=== PATIENT | female | born 1955 | race Caucasian/White ===

== ENCOUNTER 2023-06-27 08:49 | Outpatient (AMB) | payer MEDICARE, OTHER, SELFPAY ==
[2023-06-27 08:53] VITALS: BP 130/86; BMI 31.9
--- NOTE | 2023-06-27 08:53 | MHC.PC.OV ---
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: No Accompanied by: Self / Same As Patient Allergies No Known Allergies Allergy (Verified 06/27/23 09:06) Medication List - Last Reconciled 06/27/23 by Janell Anna MD omeprazole 20 mg PO BID pravastatin 20 mg PO DAILY Tobacco use date assessed: 06/27/23 Fall risk assessment: No Falls in past year Last assessed Fall Risk: 06/27/23 Dental Screening Dental Screen Date: 06/27/23 Did you have a dental visit in the last 12 months?: Yes Did you have a dental problem in the last 6 months where you did not have access to dental care?: No Was dental information given to patient?: Patient has dentist HPI HPI Comments History of Present Illness Details This is a 68-year-old female with chronic GERD and pure hypercholesterolemia that comes to establish care. GERD has been stable with PPIs as needed. On statins for elevated cholesterol. Last mammogram was July 2022 in [place]. Last colonoscopy was 2016 in [place] and was normal. Last bone density was over 2 years ago. Denies any chest pain or shortness of breath. Donated left kidney to her sister and used to see a plywood matcher back in [place]. [facility] Surgical History (Updated 06/27/23 @ 09:12 by Janell Anna MD) History of tonsillectomy History of nephrectomy, left History of hysterectomy Family History Mother Alzheimer disease Emphysema lung Heart disease Father Renal cancer Substance use disorder Maternal Grandmother Stroke Family/Other Mental health disorder Social History Housing: House Alcohol intake: current Alcohol intake frequency: a few times a month Alcohol type: wine Patient Tobacco Use Status: Never used Tobacco e-Cigarette/Vaping Use: Never Used Second Hand Smoke Exposure: Yes service: No Current occupational status: employed and retired Cognitive needs: No Hearing needs: No Vision needs: Yes Questionnaire PHQ-9 Over the last 2 weeks, how often have you been bothered by any of the following problems? 1. Little interest or pleasure in doing things: not at all 2. Feeling down, depressed, or hopeless: not at all 3. Trouble falling or staying asleep, or sleeping too much: not at all 4. Feeling tired or having little energy: not at all 5. Poor appetite or overeating: not at all 6. Feeling bad about yourself - or that you are a failure or have let yourself or your family down: not at all 7. Trouble concentrating on things, such as reading the newspaper or watching television: not at all 8. Moving or speaking so slowly that other people could have noticed. Or the opposite - being so fidgety or restless that you have been moving around a lot more than usual: not at all 9. Thoughts that you would be better off or of hurting yourself in some way: not at all Total score: 0 Depression Screening Interpretation: Negative Depression Screening Done: Yes [id number] - PHQ-9 Billing: Yes Source: Developed by Drs. Олег Shukla, Ellen Garcia, Carlos Ching and colleagues, with an educational eboni from [employer]. Thrive Questionnaire Date Thrive assessed: 06/27/23 I am a: Patient What is your living situation today?: I have a steady place to live Within the past 12 months, did the food you bought not last and you didn't have the money to get more?: Never true Within the past 12 months, did you worry whether your food would run out before you got money to buy more?: Never true Do you have trouble paying for medicines?: No Do you have trouble getting transportation to medical appointments?: No Do you have trouble paying your heating and electricity bill?: No Do you have trouble taking care of your child, family member or friend?: No Do you have trouble with day-to-day activities such as bathing, preparing meals, shopping, managing finances, etc.?: No Are you currently unemployed and looking for a job?: No Are you interested in more education?: No Please select the resources that you would like help with: None Currently or been in a relationship where the following occur: no concerns reported THRIVE Score: 0 AUDIT C Alcohol Use Questionnaire (AUDIT-C) 1. How often do you have a drink containing alcohol?: 2-4 times a month 2. How many drinks containing alcohol do you have on a typical day when you are drinking?: 1 or 2 3. How often do you have six or more drinks on one occasion?: Never Total Score: 2 LUANN-7 AMB Questionnaire LUANN-7 Date LUANN - 7 assessed: 06/27/23 Feeling nervous, anxious, or on edge: 0 = Not at all Not being able to stop or control worryin = Not at all Worrying too much about different things: 0 = Not at all Trouble relaxin = Not at all Being so restless that it is hard to sit still: 0 = Not at all Becoming easily annoyed or irritable: 0 = Not at all Feeling afraid as if something awful might happen: 0 = Not at all Total LUANN-7 score (0-4 normal; 5-9 mild; 10-14 moderate; 15-21 severe): 0 Source: Developed by Drs. Олег Shukla, Ellen Garcia, Carlos Ching and colleagues, with an educational eboni from [employer]. LUANN-7 Assessment Billing LUANN-7 Assessment Tool: LUANN-7 Assessment 01143 Review of Systems Const All systems reviewed & are unremarkable except as noted in HPI and below Eyes Reports no additional complaints, Denies change in vision and Denies other visual disturbances Card Denies chest pain at rest, Denies chest pain with activity, Denies edema, Denies irregular heart rhythm, Denies claudication, Denies dyspnea, Denies dyspnea on exertion, Denies orthopnea, Denies paroxysmal nocturnal dyspnea and Denies slow heart rate Resp Denies cough, Denies dyspnea and Denies dyspnea on exertion GI Denies abdominal pain, Denies change in bowel habits, Denies excessive flatus, Denies nausea and Denies vomiting Denies urinary incontinence, Denies urinary hesitancy and Denies urinary urgency Musc Denies abnormal gait, Denies atrophy, Denies deformity and Denies limited range of motion Skin/Breast Denies bleeding lesions, Denies changing lesions and Denies rash Neuro Denies abnormal gait, Denies behavioral changes and Denies lack of coordination Psych Denies behavioral changes Physical exam (Primary Care) Vital Signs: Last Vital Signs BP 130/86 06/27/23 08:53 BMI result Body Mass Index 31.9 Tobacco/Smoking Status: Tobacco use Status Tobacco use date assessed 06/27/23 06/27/23 09:04 Patient Tobacco Use Status Never used Tobacco 06/27/23 09:04 e-Cigarette/Vaping Use Never Used 06/27/23 09:04 PHQ-9: PHQ-9 Score PHQ-9: Total score 0 06/27/23 09:04 Depression Screening Interpretation: Negative Thrive Assessment: Date of Thrive Assessment Date Thrive assessed 06/27/23 06/27/23 09:04 Currently or been in a relationship where the following occur: no concerns reported Eyes General: appearance normal, both eyes and all related structures Eyelids: Yes eyelids normal Conjunctivae: conjunctivae normal Neck Neck: Yes normal visual inspection and Yes supple Resp Effort & Inspection: normal respiratory effort Auscultation: clear to auscultation bilaterally Cardio Jugular venous distension: no JVD Rate: regular rate Rhythm: regular rhythm Heart sounds: S1 normal heart sound present and S2 normal heart sound present Extrem General: Yes full ROM Assessment and Plan Assessment & Plan (1) Pure hypercholesterolemia: Code(s): E78.00 - Pure hypercholesterolemia, unspecified Plan: Continue statins. Repeat lipid panel. (2) Chronic GERD: Code(s): K21.9 - Gastro-esophageal reflux disease without esophagitis Plan: Continue PPIs as needed. Orders: Orders XR DEXA axial skeleton Today N95.9 - Unspecified menopausal and perimenopausal disorder MM screening mammo BI Today Z12.31 - Encounter for screening mammogram for malignant neoplasm of breast Lipid Panel Today E78.5 - Hyperlipidemia, unspecified Comprehensive [place]. Panel Fast Today E78.00 - Pure hypercholesterolemia, unspecified Referrals Nephrology Referral Z52.4 - Kidney donor, Z90.5 - Acquired absence of kidney Medications: New pravastatin 20 mg PO DAILY 90 days 90 tabs 1RF omeprazole 20 mg PO DAILY pravastatin 20 mg PO DAILY 90 days 90 tabs 1RF Coding Level of Care Code New Pt Level 3 (49830) Diagnoses Pure hypercholesterolemia E78.00 Chronic GERD K21.9 Additional Codes LUANN-7 Assessment Billing - LUANN-7 Assessment Tool: LUANN-7 Assessment 74687 ([id number]) Time Spent (min) 19
== END 2023-06-27 09:18 | disposition home or self-care (01) ==
PROVIDERS: PCP Internal Medicine; Visit Provider Internal Medicine
DX: E78.00 Pure hypercholesterolemia, unspecified (principal); K21.9 Gastro-esophageal reflux disease without esophagitis
CPT/HCPCS: 99203

== ENCOUNTER 2023-07-05 11:53 | Outpatient (AMB) | payer MEDICARE, OTHER, SELFPAY ==
[2023-07-05 11:55] VITALS: BP 130/82; PULSE 83; O2SAT 99; BMI 32.7
--- NOTE | 2023-07-05 11:55 | HO.NEPHOV ---
HPI HPI Comments History of Present Illness Details 68-year-old femal e with chronic SAMUEL D and dyslipidemia who had donated h er kidney to her s ister comes in for establishment in follow-up of renal care locally. GE RD has been stable with PPIs as need ed. Sheis on stat ins for elevated c holesterol. Last mammogram was Sanya h 2022 in [facility]. Last colo noscopy was 2017 i n [place] a nd was normal. La st bone density wa s over 2 years ago . She denies any chest pain, shortn ess of breath, par oxysmal nocturnal dyspnea, orthopnea , pedal edema, yessenia ght gain, renal ca lculus, hematuria, edema, urinary or orthostatic sympt oms. She has been seeing a nephrolo gist back in [place]. [facility] Surgical History History of tonsillectomy History of nephrectomy, left History of hysterectomy Family History Mother Alzheimer disease Emphysema lung Heart disease Father Renal cancer Substance use disorder Maternal Grandmother Stroke Family/Other Mental health disorder Social History Housing: House Alcohol intake: current Alcohol intake frequency: a few times a month Alcohol type: wine Patient Tobacco Use Status: Never used Tobacco e-Cigarette/Vaping Use: Never Used Second Hand Smoke Exposure: Yes service: No Current occupational status: employed and retired Cognitive needs: No Hearing needs: No Vision needs: Yes Vital Signs 07/05/23 11:55 Height 5 ft 1 in Weight 173 lb BMI 32.7 BP 130/82 Blood Pressure Location Rt brachial Position Sitting Pulse 83 Pulse Source Pulse Oximeter Pulse Oximetry (%) 99 Oxygen Delivery Method Room Air Physical Exam Vital Signs: Last Vital Signs Pulse 83 07/05/23 11:55 BP 130/82 07/05/23 11:55 Pulse Ox 99 07/05/23 11:55 Oxygen Delivery Method Room Air 07/05/23 11:55 BMI result Body Mass Index 32.7 Const General: comfortable and no acute distress Orientation/consciousness: patient oriented x3 HEENT Head: Yes normocephalic Mouth: Normal oral and palatal mucosa present Eyes EOM: EOMs intact bilaterally Neck Neck: Yes supple Resp Auscultation: clear to auscultation bilaterally Cardio Jugular venous distension: no JVD Rate: regular rate GI Palpation (GI): Soft to palpation Auscultation: normal bowel sounds General: Yes no CVA tenderness Back/Spine/Pelvis Back: no CVA tenderness Skin General skin exam: no rashes or lesions noted Neuro General: patient oriented x3 and moves all extremities Extrem General: Yes no pedal edema Assessment & Plan Assessment & Plan (1) Absent kidney, acquired: Code(s): Z90.5 - Acquired absence of kidney Plan Senait has given one of her kidneys to her sister. Her renal functions have been stable. Her blood pressure has been at goal. She needs to lose weight. She has not known to have any proteinuria. She is at risk for hyper filtration. I have ordered workup. With time she may be a candidate for low-dose DUNCAN inhibitor, if indicated. She needs to continue lifestyle modifications. I had not make any medication changes today. She should avoid nonsteroidal anti-inflammatories and maintain good hydration. I answered all her questions. Follow-up appointment given. Orders: Orders Blood Urea Nitrogen 07/05/23 Z90.5 - Acquired absence of kidney Calcium 07/05/23 Z90.5 - Acquired absence of kidney Vitamin D 25-OH Total 07/05/23 Z90.5 - Acquired absence of kidney Phosphorus 07/05/23 Z90.5 - Acquired absence of kidney Creatinine 07/05/23 Z90.5 - Acquired absence of kidney Electrolytes 07/05/23 Z90.5 - Acquired absence of kidney Protein Creatinine Ratio, Ur 07/05/23 Z90.5 - Acquired absence of kidney Parathyroid Hormone Intact 07/05/23 Z90.5 - Acquired absence of kidney Coding Level of Care Code New Pt Level 4 (28947) Diagnoses Absent kidney, acquired Z90.5 Results Reviewed Nephrology Results: No Data to Display
== END 2023-07-05 13:00 | disposition home or self-care (01) ==
PROVIDERS: PCP Internal Medicine; Visit Provider Internal Medicine Nephrology
DX: Z90.5 Acquired absence of kidney (principal)
CPT/HCPCS: 99204

== ENCOUNTER → 2023-07-05 11:53 | Outpatient (BNVA) | payer MEDICARE, OTHER, SELFPAY | PROVIDERS: PCP Internal Medicine; Visit Provider Internal Medicine Nephrology | DX: Z90.5 Acquired absence of kidney (principal) | CPT/HCPCS: 99202 ==

== ENCOUNTER 2023-08-09 09:34 | Outpatient (REF) | payer MEDICARE, OTHER, SELFPAY ==
--- NOTE | ~2023-08-09 | MM_ITS ---
EXAMINATION: MM SCREENING DIGITAL BREAST TOMOSYNTHESIS, BILATERAL CLINICAL INFORMATION: Screening. Asymptomatic. COMPARISON: Mammography: This study is compared with prior exams dating back to 2022. TECHNIQUE: Digital breast tomosynthesis is performed in both the craniocaudal and mediolateral oblique views along with computer-aided detection (CAD). Synthesized 2D images are generated from the tomosynthesis. FINDINGS: There are scattered areas of fibroglandular density (ACR BI-RADS breast composition Category b). There are no significant masses, abnormal calcifications, or other abnormalities. MM/MM tomosynthesis screening BI IMPRESSION: No mammographic evidence of malignancy. ASSESSMENT: BI-RADS BI-RADS 1 - Negative RECOMMENDATION: Routine annual mammography screening. 1 year F/U This examination should not preclude the clinical evaluation of a suspicious palpable abnormality. This patient's information was entered into a reminder system with a target due date for their next mammogram.
== END 2023-08-09 09:35 | disposition home or self-care (01) ==
LOC: HO.MAMMO 09:34
PROVIDERS: PCP Internal Medicine; Visit Provider Internal Medicine
DX: Z12.31 Encounter for screening mammogram for malignant neoplasm of breast (principal)
CPT/HCPCS: 77063; 77067

== ENCOUNTER → 2023-08-09 09:45 | Outpatient (BNV) | payer MEDICARE, OTHER, SELFPAY | PROVIDERS: PCP Internal Medicine; Visit Provider Radiology Diagnostic Radiology | DX: Z12.31 Encounter for screening mammogram for malignant neoplasm of breast (principal) | CPT/HCPCS: 77063; 77067 ==

== ENCOUNTER 2023-11-01 06:19 | Outpatient (REF) | payer MEDICARE, OTHER, SELFPAY ==
[2023-11-01 08:34] LABS: Alanine Aminotransferase 29 U/L (0-31); Albumin Level 4.2 g/dL (3.5-5.0); Alkaline Phosphatase 84 U/L (39-117); Anion Gap 12 (12-20); Aspartate Amino Transferase 36 U/L (5-31); Bilirubin Total 0.4 mg/dL (0.0-1.0); Blood Urea Nitrogen 23 mg/dL (9-16); Carbon Dioxide 28 mmol/L (22-29); Chloride 106 mmol/L (96-108); Cholesterol 219 mg/dL (<200); Estimated Glomerular Filt Rate 49; Glucose Fasting 89 mg/dL (60-99); HDL Cholesterol 50 mg/dL (>40); LDL Cholesterol Calculated 138 mg/dL (<100); Potassium 4.5 mmol/L (3.3-5.1); Sodium 141 mmol/L (135-145); Total Protein 6.8 g/dL (6.5-8.0); Triglycerides 156 mg/dL (<150)
== END 2023-11-01 06:20 | disposition home or self-care (01) ==
LOC: HO.LAB 06:19
PROVIDERS: Absent Provider Internal Medicine Nephrology; PCP Internal Medicine; Visit Provider Internal Medicine
DX: E78.00 Pure hypercholesterolemia, unspecified (principal); E78.5 Hyperlipidemia, unspecified
CPT/HCPCS: 36415; 80053; 80061

== ENCOUNTER 2023-11-07 15:39 | Outpatient (AMB) | payer MEDICARE, OTHER, SELFPAY ==
--- NOTE | 2023-11-07 15:43 | MHC.PC.OV ---
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 GERD stable with famotidine. Cholesterol still elevated with pravastatin but her [place] risk score is less than 6% therefore I will not change the medication. She has obese with a BMI of 32.5 and was advised to diet and exercise to reach BMI goal less than 30. [facility] Surgical History History of tonsillectomy History of nephrectomy, left History of hysterectomy Family History Mother Alzheimer disease Emphysema lung Heart disease Father Renal cancer Substance use disorder Maternal Grandmother Stroke Family/Other Mental health disorder Social History Housing: House Alcohol intake: current Alcohol intake frequency: a few times a month Alcohol type: wine Patient Tobacco Use Status: Never used Tobacco e-Cigarette/Vaping Use: Never Used Second Hand Smoke Exposure: Yes service: No Current occupational status: employed and retired Cognitive needs: No Hearing needs: No Vision needs: Yes Questionnaire Thrive Questionnaire Date Thrive assessed: 06/27/23 LUANN-7 AMB Questionnaire LUANN-7 Date LUANN - 7 assessed: 06/27/23 Source: Developed by Drs. Олег Shukla, Ellen Garcia, Carlos Ching and colleagues, with an educational eboni from [employer]. Review of Systems Const All systems reviewed & are unremarkable except as noted in HPI and below Card Denies chest pain at rest, Denies chest pain with activity, Denies edema, Denies irregular heart rhythm, Denies claudication, Denies dyspnea, Denies dyspnea on exertion, Denies orthopnea, Denies paroxysmal nocturnal dyspnea and Denies slow heart rate Resp Denies cough, Denies dyspnea and Denies dyspnea on exertion GI Denies abdominal pain, Denies change in bowel habits, Denies excessive flatus, Denies nausea and Denies vomiting Denies urinary incontinence, Denies urinary hesitancy and Denies urinary urgency Physical exam (Primary Care) Vital Signs: Last Vital Signs BP 126/82 11/07/23 15:44 BMI result Body Mass Index 32.5 BMI Assessment/Plan discussion: High BMI High, discussed plan: lifestyle, weight reduction, dietary and physical activity Tobacco/Smoking Status: Tobacco use Status Tobacco use date assessed 06/27/23 11/07/23 15:48 Patient Tobacco Use Status Never used Tobacco 11/07/23 15:48 e-Cigarette/Vaping Use Never Used 11/07/23 15:48 Thrive Assessment: Date of Thrive Assessment Date Thrive assessed 06/27/23 11/07/23 15:48 Resp Effort & Inspection: normal respiratory effort Auscultation: clear to auscultation bilaterally Cardio Jugular venous distension: no JVD Rate: regular rate Rhythm: regular rhythm Heart sounds: S1 normal heart sound present and S2 normal heart sound present Extrem General: Yes full ROM Assessment and Plan Assessment & Plan (1) Chronic GERD: Code(s): K21.9 - Gastro-esophageal reflux disease without esophagitis Plan: Continue famotidine. (2) Pure hypercholesterolemia: Code(s): E78.00 - Pure hypercholesterolemia, unspecified Plan: Continue pravastatin. Repeat lipid panel in 6 months. Start low-cholesterol diet. (3) Class 1 obesity with body mass index (BMI) of 32.0 to 32.9 in adult: Code(s): E66.9 - Obesity, unspecified; Z68.32 - Body mass index [BMI] 32.0-32.9, adult Qualifiers: Obesity type: due to excess calories Serious obesity comorbidity presence: without serious comorbidity Qualified Code(s): E66.09 - Other obesity due to excess calories; Z68.32 - Body mass index [BMI] 32.0-32.9, adult Plan: Start diet and exercise. BMI goal is less than 30. Orders: Orders Lipid Panel 6 Months E78.00 - Pure hypercholesterolemia, unspecified, E78.5 - Hyperlipidemia, unspecified Comprehensive [place]. Panel Fast 6 Months E78.00 - Pure hypercholesterolemia, unspecified Coding Level of Care Code Est Pt Level 3 (36096) Complex EM visit Add On G2211 Diagnoses Chronic GERD K21.9 Pure hypercholesterolemia E78.00 Class 1 obesity due to excess calories without serious comorbidity with body mass index (BMI) of 32.0 to 32.9 in adult E66.09; Z68.32 Obesity type: due to excess calories Serious obesity comorbidity presence: without serious comorbidity Time Spent (min) 18
[2023-11-07 15:44] VITALS: BP 126/82; BMI 32.5
== END 2023-11-07 16:16 | disposition home or self-care (01) ==
PROVIDERS: PCP Internal Medicine; Visit Provider Internal Medicine
DX: K21.9 Gastro-esophageal reflux disease without esophagitis (principal); E78.00 Pure hypercholesterolemia, unspecified; E66.09 Other obesity due to excess calories; Z68.32 Body mass index [BMI] 32.0-32.9, adult
CPT/HCPCS: 99213; G2211

== ENCOUNTER 2024-01-03 14:59 | Outpatient (AMB) | payer MEDICARE, OTHER, SELFPAY ==
--- NOTE | 2024-01-03 15:01 | HO.NEPHOV_ITS ---
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 She had donated her kidney to her sister. She does not have any hypertension, proteinuria. Her renal functions have been stable with the last serum creatinine 1.11. She has no froth or foam in the urine. She is trying to lose some weight. She denies taking excessive nonsteroidal anti-inflammatories. She maintains good hydration. She denies any UTIs, hematuria, renal stones, flank pain, chest pain, shortness of breath, paroxysmal nocturnal dyspnea, orthopnea, pedal edema or orthostatic symptoms. She had gotten a shingles shot and has some erythema around it on her right upper extremity. Otherwise there were no new complaints at the time of this office visit [facility] Surgical History History of tonsillectomy History of nephrectomy, left History of hysterectomy Family History Mother Alzheimer disease Emphysema lung Heart disease Father Renal cancer Substance use disorder Maternal Grandmother Stroke Family/Other Mental health disorder Social History Housing: House Alcohol intake: current Alcohol intake frequency: a few times a month Alcohol type: wine Patient Tobacco Use Status: Never used Tobacco e-Cigarette/Vaping Use: Never Used Second Hand Smoke Exposure: Yes service: No Current occupational status: employed and retired Cognitive needs: No Hearing needs: No Vision needs: Yes Physical Exam Vital Signs: Last Vital Signs Pulse 88 01/03/24 15:03 BP 122/76 01/03/24 15:03 Pulse Ox 96 01/03/24 15:03 Oxygen Delivery Method Room Air 01/03/24 15:03 BMI result Body Mass Index 32.9 Const General: comfortable and no acute distress Orientation/consciousness: patient oriented x3 HEENT Head: Yes normocephalic Mouth: Normal oral and palatal mucosa present Eyes EOM: EOMs intact bilaterally Neck Neck: Yes supple Resp Auscultation: clear to auscultation bilaterally Cardio Jugular venous distension: no JVD Rate: regular rate GI Palpation (GI): Soft to palpation Auscultation: normal bowel sounds General: Yes no CVA tenderness Back/Spine/Pelvis Back: no CVA tenderness Skin General skin exam: no rashes or lesions noted Neuro General: patient oriented x3 and moves all extremities Extrem General: Yes no pedal edema Results Reviewed Nephrology Results: Sodium 141 mmol/L (135-145) 11/01/23 Potassium 4.5 mmol/L (3.3-5.1) 11/01/23 Chloride 106 mmol/L (96-108) 11/01/23 Carbon Dioxide 28 mmol/L (22-29) 11/01/23 BUN 23 mg/dL (9-16) H 11/01/23 Creatinine 1.11 mg/dL (0.5-1.4) 11/01/23 Calcium 10.0 mg/dL (8.4-10.2) 11/01/23 Assessment & Plan Assessment & Plan (1) Absent kidney, acquired: Code(s): Z90.5 - Acquired absence of kidney Category: Medical Plan Senait has given one of her kidneys to her sister. Her renal functions have been stable. Her blood pressure has been at goal. She needs to lose weight. She is not known to have any proteinuria. She is at risk for hyper filtration. With time she may be a candidate for low-dose DUNCAN inhibitor, if indicated. She needs to continue lifestyle modifications. I did not make any medication changes today. She should avoid nonsteroidal anti-inflammatories and maintain good hydration. I answered all her questions. Follow-up appointment given. Orders: Orders Creatinine Today Z90.5 - Acquired absence of kidney Electrolytes Today Z90.5 - Acquired absence of kidney Protein Creatinine Ratio, Ur Today Z90.5 - Acquired absence of kidney Blood Urea Nitrogen Today Z90.5 - Acquired absence of kidney Coding Level of Care Code Est Pt Level 4 (73006) Diagnoses Absent kidney, acquired Z90.5
[2024-01-03 15:03] VITALS: BP 122/76; PULSE 88; O2SAT 96; BMI 32.9
== END 2024-01-03 15:28 | disposition home or self-care (01) ==
PROVIDERS: PCP Internal Medicine; Visit Provider Internal Medicine Nephrology
DX: Z90.5 Acquired absence of kidney (principal)
CPT/HCPCS: 99214

== ENCOUNTER → 2024-01-03 14:59 | Outpatient (BNVA) | payer MEDICARE, OTHER, SELFPAY | PROVIDERS: PCP Internal Medicine; Visit Provider Internal Medicine Nephrology | DX: Z90.5 Acquired absence of kidney (principal) | CPT/HCPCS: 99212 ==

== ENCOUNTER 2024-04-23 08:05 | Outpatient (REF) | payer MEDICARE, OTHER, SELFPAY ==
--- NOTE | ~2024-04-23 | MM_ITS ---
EXAMINATION: BONE DENSITOMETRY CLINICAL INDICATION: Menopause. COMPARISON: This is the patient's baseline examination. TECHNIQUE: Using a [employer] DXA System (software version: 13.1) manufactured by [employer], dual-energy x-ray absorptiometry was performed of the lumbar spine and left hip. The images are of good technical quality. Summary results are attached. FINDINGS: LEFT FEMUR, NECK: BMD 0.729 g/cm2, Z-score -0.9, T-score -2.2, osteopenia. LEFT FEMUR, TOTAL: BMD 0.761 g/cm2, Z-score -0.9, T-score -2.0, osteopenia. AP SPINE L1-L4: BMD 0.976 g/cm2, Z-score -0.5, T-score -1.7, osteopenia. IDENTIFIED RISK FACTORS: Early menopause, hysterectomy, right oophorectomy, secondary osteoporosis. HISTORY OF FRACTURE: None listed. MEDICATIONS: None listed. MM/XR DEXA axial skeleton IMPRESSION: 1. DIAGNOSIS: Osteopenia based on the lowest T-score value of -2.2 in the femoral neck applying World Health Organization criteria. 2. 10-YEAR FRACTURE RISK PREDICTION, FRAX: Major osteoporotic fracture (clinical spine, forearm, hip or shoulder) 12.2%. Hip fracture 2.4%. 3. Treatment Recommendations: NOF guidelines recommend consideration for treatment in postmenopausal women and men age 50 and older presenting with the following: -A hip or vertebral (clinical or morphometric) fracture. -T-score less than or equal to -2.5 at the femoral neck or spine after appropriate evaluation to exclude secondary causes. -Low bone mass at the hip or spine and a 10-year fracture probability by FRAX of greater than or equal to 3% for hip fracture or greater than or equal to 20% for major osteoporotic fracture based on the [place] adapted WHO algorithm. 4. Other Recommendations: All treatment decisions require clinical judgment and consideration of individual patient factors, including patient preferences, comorbidities, previous drug use, risk factors not captured in the FRAX model (e.g. frailty, falls, vitamin D deficiency, increased bone turnover, interval significant decline in bone density) and possible under or overestimation of fracture risk by FRAX. Additional medical evaluation for secondary cause of low bone mineral density may be appropriate. FUTURE SCAN RECOMMENDATION: People with diagnosed cases of osteoporosis or at high risk for fracture should have regular bone mineral density tests. For patients eligible for Medicare, routine testing is allowed once every 2 years. The testing frequency can be increased to one year for patients who have rapidly progressing disease, those who are receiving or discontinuing medical therapy to restore bone mass, or have additional risk factors. Electronically signed by: Claudia Hendrickson MD 04/24/2024 02:34 PM ALISA JUAREZ
== END 2024-04-23 08:06 | disposition home or self-care (01) ==
LOC: HO.MAMMO 08:05
PROVIDERS: PCP Internal Medicine; Visit Provider Internal Medicine
DX: Z13.820 Encounter for screening for osteoporosis (principal); Z78.0 Asymptomatic menopausal state
CPT/HCPCS: 77080

== ENCOUNTER 2024-05-13 15:51 | Outpatient (AMB) | payer MEDICARE, OTHER, SELFPAY ==
[2024-05-13 15:54] VITALS: BP 130/82; BMI 33.1
--- NOTE | 2024-05-13 15:54 | MHC.PC.OV ---
Vital Signs 05/13/24 15:54 Height 5 ft 1 in Weight 175 lb BMI 33.1 BP 130/82 Blood Pressure Location Lt brachial Position Sitting Intake Visit Reasons: 6mof\u Intake Note: Patient here for a 6 month follow up Planning Division Superintendent Required: No Accompanied by: Self / Same As Patient Allergies No Known Allergies Allergy (Verified 05/13/24 16:32) Medication List - Last Reconciled 05/13/24 by Janell Anna MD famotidine (Pepcid) 20 mg PO DAILY pravastatin 20 mg PO DAILY 90 days Tobacco use date assessed: 06/27/23 Fall risk assessment: No Falls in past year Last assessed Fall Risk: 05/13/24 Dental Screening Dental Screen Date: 05/13/24 Did you have a dental visit in the last 12 months?: No Did you have a dental problem in the last 6 months where you did not have access to dental care?: No Was dental information given to patient?: Patient has dentist HPI HPI Comments History of Present Illness Details The patient is a 69-year-old female presenting with shortness of breath on exertion and dizziness. The shortness of breath has been present intermittently and tends to worsen with physical activities such as climbing stairs or carrying groceries. The patient reports a long history of this symptom, even when previously evaluated at another health center but cannot recall any specific diagnoses or further investigations. Weight management challenges have been discussed, with a BMI indicating Class 1 obesity, which may contribute to the symptomatology. The patient also experiences dizziness, which occurs spontaneously, sometimes necessitating support such as holding onto taylor while walking. There is no report of dizziness being positional, and there was no mention of associated ear symptoms such as tinnitus. This dizziness has been a long-standing issue with no clear inciting factors or prior interventions. Her GERD has been stable with famotidine. Cholesterol well controlled with statins and reports no side effects. She is obese with a BMI of 33.1 and was advised to diet and exercise as tolerated to reach BMI goal less than 30. [facility] Surgical History History of tonsillectomy History of nephrectomy, left History of hysterectomy Family History Mother Alzheimer disease Emphysema lung Heart disease Father Renal cancer Substance use disorder Maternal Grandmother Stroke Family/Other Mental health disorder Social History Housing: House Alcohol intake: current Alcohol intake frequency: a few times a month Alcohol type: wine Patient Tobacco Use Status: Never used Tobacco e-Cigarette/Vaping Use: Never Used Second Hand Smoke Exposure: Yes service: No Current occupational status: employed and retired Cognitive needs: No Hearing needs: No Vision needs: Yes Questionnaire Thrive Questionnaire Date Thrive assessed: 06/27/23 AUDIT C Alcohol Use Questionnaire (AUDIT-C) 2. How many drinks containing alcohol do you have on a typical day when you are drinking?: 1 or 2 3. How often do you have six or more drinks on one occasion?: Never Total Score: 0 LUANN-7 AMB Questionnaire LUANN-7 Date LUANN - 7 assessed: 06/27/23 Source: Developed by Drs. Олег Shukla, Ellen Garcia, Carlos Ching and colleagues, with an educational eboni from [employer]. Review of Systems Const Details: - General: Reports no chest pain. - Cardiovascular: Denies shortness of breath at rest. - Neurological: Reports dizziness. Denies ringing in the ears. Physical exam (Primary Care) Vital Signs: Last Vital Signs BP 130/82 05/13/24 15:54 BMI result Body Mass Index 33.1 BMI Assessment/Plan discussion: High BMI High, discussed plan: lifestyle, weight reduction, dietary and physical activity Tobacco/Smoking Status: Tobacco use Status Tobacco use date assessed 06/27/23 05/13/24 16:01 Patient Tobacco Use Status Never used Tobacco 05/13/24 16:01 e-Cigarette/Vaping Use Never Used 05/13/24 16:01 Thrive Assessment: Date of Thrive Assessment Date Thrive assessed 06/27/23 05/13/24 16:01 Const Other: General: No confusion Respiratory: Shortness of breath on activity, clear to auscultation bilaterally Cardiovascular: No jugular venous distension, regular rate, regular rhythm, S1 normal heart sound present and S2 normal heart sound present Neurology: Patient oriented x3, no focal motor deficits and No confusion, reports dizziness Coding Level of Care Code Est Pt Level 4 (67356) Complex EM visit Add On G2211 Diagnoses Dyspnea on exertion R06.09 Chronic GERD K21.9 Pure hypercholesterolemia E78.00 Dizziness R42 Time Spent (min) 23 Assessment & Plan Assessment & Plan (1) Dyspnea on exertion: Code(s): R06.09 - Other forms of dyspnea Category: Medical (2) Chronic GERD: Code(s): K21.9 - Gastro-esophageal reflux disease without esophagitis Category: Medical (3) Pure hypercholesterolemia: Code(s): E78.00 - Pure hypercholesterolemia, unspecified Category: Medical (4) Dizziness: Code(s): R42 - Dizziness and giddiness Category: Medical Plan - Provide referral to pulmonology for further evaluation of shortness of breath on exertion. - Prescribe medications for dizziness with caution for possible sedative effects, ensuring non-impact on renal function. - Monitor hypercholesterolemia with repeat lipid panel testing in six months. - Lifestyle modification counseling, including dietary changes and weight management support. - Advise follow-up care if symptoms worsen or fail to improve with interventions. Patient was informed and verbally consented to the use of an ambient scribe for clinic note documentation during this visit. During the visit, we discussed the patient's current symptoms of shortness of breath on exertion and dizziness. I recommended a referral to a aerial crop duster for a comprehensive evaluation of the respiratory symptoms, as well as the possible benefits of losing weight in alleviating shortness of breath. For the dizziness, I suggested a medication option that may help reduce the symptoms with caution regarding drowsiness as a side effect. We have also planned for repeat cholesterol monitoring in six months due to prior elevated levels and discussed ongoing lifestyle modifications for managing weight and supporting cardiovascular health. I highlighted the importance of returning if symptoms escalate or persist despite the implemented plans. Consent was given for the proposed management plan and referrals. Orders: Orders Comprehensive [place]. Panel Fast 6 Months R06.09 - Other forms of dyspnea Complete Blood Count Auto Diff 6 Months R06.09 - Other forms of dyspnea Lipid Panel 6 Months E78.5 - Hyperlipidemia, unspecified Referrals Pulmonology Referral R06.09 - Other forms of dyspnea Medications: New meclizine 25 mg PO BID PRN 6 tabs 0RF dizziness 3 days Patient Instructions: - Follow up with the scheduled pulmonology referral for additional assessment. - Take the prescribed medication for dizziness only as directed and be aware of potential drowsiness as a side effect. - Plan for a repeat cholesterol test in six months. - Focus on weight management strategies including balanced diet and increased physical activity. - Monitor symptoms of dizziness and shortness of breath. Contact my office if symptoms worsen or new symptoms develop.
== END 2024-05-13 16:45 | disposition home or self-care (01) ==
PROVIDERS: PCP Internal Medicine; Visit Provider Internal Medicine
DX: R06.09 Other forms of dyspnea (principal); K21.9 Gastro-esophageal reflux disease without esophagitis; E78.00 Pure hypercholesterolemia, unspecified; R42 Dizziness and giddiness

== ENCOUNTER → 2024-05-13 15:51 | Outpatient (BNVA) | payer MEDICARE, OTHER, SELFPAY | PROVIDERS: PCP Internal Medicine; Visit Provider Internal Medicine | DX: R42 Dizziness and giddiness (principal); E66.811 Obesity, class 1; K21.9 Gastro-esophageal reflux disease without esophagitis; R06.09 Other forms of dyspnea; E78.00 Pure hypercholesterolemia, unspecified; Z68.33 Body mass index [BMI] 33.0-33.9, adult; Z79.899 Other long term (current) drug therapy | CPT/HCPCS: 99212 ==

== ENCOUNTER 2024-08-16 16:11 | Outpatient (REF) | payer MEDICARE, OTHER, SELFPAY | END 2024-08-16 16:12 | disposition home or self-care (01) | LOC: HO.MAMMO 16:11 | PROVIDERS: PCP Internal Medicine; Visit Provider Internal Medicine | DX: Z12.31 Encounter for screening mammogram for malignant neoplasm of breast (principal) | CPT/HCPCS: 77063; 77067 ==

== ENCOUNTER → 2024-08-16 16:15 | Outpatient (BNV) | payer MEDICARE, OTHER, SELFPAY | PROVIDERS: PCP Internal Medicine; Visit Provider Internal Medicine | DX: Z12.31 Encounter for screening mammogram for malignant neoplasm of breast (principal) | CPT/HCPCS: 77063; 77067 ==

== ENCOUNTER 2024-10-21 15:31 | Outpatient (AMB) | payer MEDICARE, OTHER, SELFPAY ==
[2024-10-21 15:36] VITALS: BP 120/86; PULSE 79; O2SAT 98; BMI 33.1
--- NOTE | 2024-10-21 15:36 | MHC.OFFVIS ---
Vital Signs 10/21/24 15:36 Height 5 ft 1 in Weight 175 lb 4.28 oz BMI 33.1 BP 120/86 Blood Pressure Location Rt brachial Position Sitting Pulse 79 Pulse Source Pulse Oximeter Pulse Oximetry (%) 98 Oxygen Delivery Method Room Air Intake Visit Reasons: Dyspnea Allergies No Known Allergies Allergy (Verified 10/21/24 15:40) HPI HPI Dyspnea: Details: Senait is a pleasant 69 year old female, never smoker, with underlying GERD. She was referred by PCP for pulmonary evaluation for ongoing dyspnea. She reports dyspnea occurs upon exertion and has been present for many years, occasionally with associated chest heaviness. Denies cough, wheezing or chest tightness. Symptoms currently thought to be attributed to weight however patient states she had symptoms when she was more active and weighed less. She denies prior h/o asthma. She denies recurrent respiratory infections. She endorses significant second hand smoke exposure. She denies seasonal allergies. She denies occupational exposures. She reports prior h/o cardiac concerns in 1999 during extensive workup prior to donating kidney which was suggestive of prior [place], however energy conservation representative did not confirm finding. She denies any chest pain at this time, endorses dizziness. She reports mother with asthma, two sisters, smokers, one with lung cancer and the other with recurrent pleural effusions. [facility] Surgical History History of tonsillectomy History of nephrectomy, left History of hysterectomy Family History Mother Alzheimer disease Emphysema lung Heart disease Father Renal cancer Substance use disorder Maternal Grandmother Stroke Family/Other Mental health disorder Social History Housing: House Alcohol intake: current Alcohol intake frequency: a few times a month Alcohol type: wine Patient Tobacco Use Status: Never used Tobacco e-Cigarette/Vaping Use: Never Used Second Hand Smoke Exposure: Yes service: No Current occupational status: employed and retired Cognitive needs: No Hearing needs: No Vision needs: Yes Review of Systems Const Denies chills, Denies excessive sweating, Denies fever(s), Denies headache(s) and Denies night sweats Eyes Denies dry eyes, Denies irritation and Denies itchy eyes ENT Reports Normal hearing present, Denies headache(s), Denies nasal congestion, Denies nasal discharge, Denies post nasal drip and Denies sore throat Card Denies chest pain, Denies chest pain at rest, Denies chest pain with activity, Denies claudication, Denies leg edema, Denies orthopnea and Denies paroxysmal nocturnal dyspnea Resp Denies chest congestion, Denies cough, Denies excessive phlegm production, Denies pain on inspiration, Denies pain with cough, Denies stridor and Denies wheezing Musc Denies myalgias Neuro Reports Normal hearing present and Denies headache(s) Endo Denies excessive sweating Grant/Lymph Denies lymphadenopathy Aller/Immun Denies itchy eyes, Denies seasonal rhinorrhea and Denies wheezing Physical Exam Vital Signs: Last Vital Signs Pulse 79 10/21/24 15:36 BP 120/86 10/21/24 15:36 Pulse Ox 98 10/21/24 15:36 Oxygen Delivery Method Room Air 10/21/24 15:36 BMI result Body Mass Index 33.1 Const General: cooperative, healthy appearing, comfortable, no acute distress, well developed and alert Nutritional Appearance: obese Orientation/consciousness: patient oriented x3 Limitations: no limitations HEENT Head: Yes normal to inspection, Yes normocephalic and Yes atraumatic Ears: hearing grossly normal bilaterally and external ears normal Eyes General: appearance normal, both eyes and all related structures Eyelids: Yes eyelids normal Sclerae: sclerae normal EOM: EOMs intact bilaterally Neck Neck: Yes normal visual inspection and Yes no lymphadenopathy Lymphatic: no lymphadenopathy noted Chest Chest palpation & inspection: normal inspection of the chest Resp Effort & Inspection: normal respiratory effort, able to speak in complete sentences, no audible wheezes, no cough, no stridor, not tachypneic, no tripod positioning and no use of accessory muscles Auscultation: clear to auscultation bilaterally Cardio Jugular venous distension: no JVD Rate: regular rate Rhythm: regular rhythm Skin Other: warm, dry General skin exam: no rashes or lesions noted Neuro General: patient oriented x3 Cranial nerves: Yes Normal hearing present Cognition (Neuro): normal cognition Gait exam (Neuro): Normal gait present Extrem General: Yes normal to inspection, Yes capillary refill normal, Yes no clubbing, cyanosis or edema and Yes no pedal edema Psych Appearance: grossly normal and well kempt Speech and movement: Normal speech and movement present and Clear speech present Affect: normal affect Attitude: cooperative Thought process: Normal thought process present Thought content: Normal thought content present Insight: Good insight present (Psych) Judgement: Good judgement present (Psych) Assessment & Plan Assessment & Plan (1) Dyspnea: Code(s): R06.00 - Dyspnea, unspecified Category: Medical Plan Seanit presents for pulmonary evaluation for ongoing dyspnea, unclear etiology. Will send for PFT to assess for obstructive defect. Will send for CXR to assess for any underlying parenchymal condition. All questions were answered and patient is in agreement of plan. Will follow up to review results or sooner if needed. Orders: Orders PFT pulmonary function test Today R06.00 - Dyspnea, unspecified XR chest 2V Today R06.00 - Dyspnea, unspecified Coding Level of Care Code New Pt Level 3 (17732) Diagnoses Dyspnea R06.00
--- OUTSIDE RECORDS SUMMARY | 2024-10-21 16:43 | XMS_ITS | Clinical Summary ---
Author Organization [facility] Facility Address [address] [place] [id number] Care Team Providers Care Baccarat Manager Name Role Phone Ann Rapp MD Primary Care Provider Allergies Active Allergy Reactions Criticality Noted Date Comments Aspirin Other (see comments) 10/15/2020 Ibuprofen Other (see comments) 10/15/2020 Naproxen Other (see comments) 10/15/2020 Medications atorvastatin (LIPITOR) 10 MG tablet Take 10 mg by mouth daily Active cholecalciferol (VITAMIN D-3) 25 MCG (1000 UT) capsule Take 1 capsule by mouth 1 (one) time Active furosemide (LASIX) 20 MG tablet Take 1 tablet by mouth 1 (one) time each day Active omeprazole OTC (PriLOSEC OTC) 20 MG EC tablet Take 1 tablet by mouth 1 (one) time each day Active pravastatin (PRAVACHOL) 20 MG tablet Take 1 tablet by mouth 1 (one) time Active calcitriol (ROCALTROL) 0.25 MCG capsule TAKE 1 CAPSULE EVERY OTHER DAY 45 capsule 3 02/13/2022 Active Active Problems Problem Noted Date Diagnosed Date Stage 3a chronic kidney disease 10/15/2020 Hyperparathyroidism due to renal insufficiency 0 10/15/2020 Vitamin D deficiency 10/15/2020 Acquired absence of kidney 08/21/2017 Overview (10/15/2020): L s/p donation to sister Elevated blood pressure read ing with no diagnosis of hypertension Family History Medical History Relation Comments Cancer Father kidney Kidney disease Father Dementia Mother Heart disease Mother [place] Gout Sibling 1 sister Diabetes Sibling 2 sisters Relation Status Comments Father Mother Sibling 1 Sibling 2 Social History Tobacco Use Types Packs/Day Years Used Date Smoking Tobacco: Never Smokeless Tobacco: Never Alcohol Use Standard Drinks/Week Comments Yes 0 (1 standard drink = 0.6 oz pure alcohol) Alcoholic Drinks/day: Occasional social drink Comments Unknown Sex and Gender Information Value Date Recorded Sex Assigned at Female 10/13/2021 8:19 PM EDT Legal Sex Female 5:10 PM EST Gender Identity Not on file Sexual Orientation Not on file Last Filed Vital Signs Vital Sign Reading Time Taken Comments Blood Pressure 126/75 10/21/2021 2:44 PM EDT Pulse 69 10/21/2021 2:44 PM EDT Temperature - - Respiratory Rate - - Oxygen Saturation - - Inhaled Oxygen Concentration - - Weight 77 kg (169 lb 11.2 oz) 10/21/2021 2:44 PM EDT Height 157.5 cm (5' 2 ) 03/27/2020 12:00 PM EST Body Mass Index 31.04 03/27/2020 12:00 PM EST Plan of Treatment Health Maintenance Due Date Last Done Comments Breast Cancer Screening 1955 Pneumococcal Vaccine: 50+ Ye ars (1 of 2 - PCV) 12/31/1974 Colorectal Cancer Screening: Annual FOBT 12/31/2004 Colorectal Cancer Screening: Colonoscopy 12/31/2004 Colorectal Cancer Screening: Sigmoidoscopy 12/31/2004 Influenza Vaccine (Season Ended) 2025 Hepatitis B Vaccine Aged Out No longe r eligible based on patient's age to complete this topic Insurance Medicare [facility] Medicare Care Teams Baccarat Manager Relationship Specialty Start Date End Date Ann Rapp MD [address] [place] [id number] PCP - General Family Medicine 04/05/21
== END 2024-10-21 16:13 | disposition home or self-care (01) ==
PROVIDERS: PCP Internal Medicine; Referring Provider Internal Medicine; Visit Provider Nurse Practitioner Family
DX: R06.00 Dyspnea, unspecified (principal)
CPT/HCPCS: 99203

== ENCOUNTER → 2024-10-21 15:31 | Outpatient (BNVA) | payer MEDICARE, OTHER, SELFPAY | PROVIDERS: PCP Internal Medicine; Referring Provider Internal Medicine; Visit Provider Nurse Practitioner Family | DX: R06.00 Dyspnea, unspecified (principal); K21.9 Gastro-esophageal reflux disease without esophagitis | CPT/HCPCS: 99202 ==

== ENCOUNTER 2024-11-15 11:24 | Outpatient (REF) | payer MEDICARE, OTHER, SELFPAY ==
--- NOTE | ~2024-11-15 | XR_ITS ---
EXAMINATION: XR CHEST CLINICAL INFORMATION: R06.00 - Dyspnea, unspecified COMPARISON: None available. TECHNIQUE: 2 views of the chest were obtained. FINDINGS: No consolidation, pleural effusion or pneumothorax. No hyperinflation. Cardiomediastinal silhouette size is normal. Multilevel thoracolumbar spondylosis with a kyphotic deformity of the thoracolumbar junction. Osteopenia versus osteoporosis. Patient's large body habitus/obesity. XR/XR chest 2V IMPRESSION: No acute airspace disease. Multilevel spondylosis. Electronically signed by: Reyes Adams MD 11/15/2024 12:23 PM EDT
--- OUTSIDE RECORDS SUMMARY | 2024-11-15 12:38 | XMS_ITS | Clinical Summary ---
Author Organization [facility] Facility Address [address] [place] [id number] Care Team Providers Care Obstetrics Tech Name Role Phone Ann Rapp MD Primary Care Provider [phone] Allergies Active Allergy Reactions Criticality Noted Date [...] disease Father Dementia Mother Heart disease Mother [place] Gout Sibling 1 sister Diabetes Sibling 2 [...] to complete this topic Insurance Medicare [facility] Medicare Care Teams Obstetrics Tech Relationship Specialty Start Date End Date Ann Rapp MD [address] [place] [id number] PCP - General Family Medicine 04/05/21
== END 2024-11-15 11:25 | disposition home or self-care (01) ==
LOC: HO.HMGCX 11:24
PROVIDERS: PCP Internal Medicine; Visit Provider Nurse Practitioner Family
DX: R06.00 Dyspnea, unspecified (principal)
CPT/HCPCS: 71046

== ENCOUNTER → 2024-11-15 11:27 | Outpatient (BNV) | payer MEDICARE, OTHER, SELFPAY | PROVIDERS: PCP Internal Medicine; Visit Provider Radiology Diagnostic Radiology | DX: M47.895 Other spondylosis, thoracolumbar region (principal) | CPT/HCPCS: 71046 ==

== ENCOUNTER 2024-11-16 07:19 | Outpatient (REF) | payer MEDICARE, OTHER, SELFPAY ==
[2024-11-16 11:04] LABS: MANUAL DIFF FLAG NO
[2024-11-16 11:15] LABS: Basophils Absolute Auto 0.1 X10*3/uL (0.0-0.2); Basophils Percent Auto 0.9 % (0-2); Eosinophils Absolute Auto 0.1 X10*3/uL (0.0-0.4); Eosinophils Percent Auto 2.1 % (0-4); Hematocrit 41.3 % (37.0-47.0); Hemoglobin 13.2 g/dl (12.0-16.0); Imm Gran Abs Auto 0.01 X10*3/uL (0.00-0.03); Imm Gran Pct Auto 0.2 % (0.0-0.4); Lymphocytes Absolute Auto 2.5 X10*3/uL (1.2-4.9); Lymphocytes Percent Auto 43.9 % (20-40); Mean Corpuscular Hemoglobin 27.2 pg (27.0-33.0); Mean Corpuscular Volume 85.2 fL (80.0-98.0); Mean Platelet Volume 11.2 fL (9.4-12.3); Monocytes Absolute Auto 0.5 X10*3/uL (0.1-1.2); Monocytes Percent Auto 8.5 % (2-11); Neutrophils Absolute Auto 2.6 x10*3/uL (2.0-8.3); Neutrophils Percent Auto 44.4 % (45-73); Platelet Count 264 X10*3/uL (160-400); Red Blood Count 4.85 X10*6/uL (4.20-5.50); Red Cell Distribution Width 13.2 % (11.0-16.0); White Blood Count 5.8 X10*3/uL (4.8-10.8)
[2024-11-16 11:30] LABS: Alanine Aminotransferase 18 U/L (0-31); Albumin Level 4.3 g/dL (3.5-5.0); Alkaline Phosphatase 68 U/L (39-117); Anion Gap 9 (12-20); Aspartate Amino Transferase 28 U/L (5-31); Bilirubin Total 0.4 mg/dL (0.0-1.0); Blood Urea Nitrogen 15 mg/dL (9-16); Calcium 9.4 mg/dL (8.4-10.2); Carbon Dioxide 27 mmol/L (22-29); Chloride 109 mmol/L (96-108); Cholesterol 170 mg/dL (<200); Estimated Glomerular Filt Rate 52; Glucose Fasting 88 mg/dL (60-99); HDL Cholesterol 45 mg/dL (>40); LDL Cholesterol Calculated 96 mg/dL (<100); Sodium 141 mmol/L (135-145); Total Protein 6.5 g/dL (6.5-8.0); Triglycerides 147 mg/dL (<150)
== END 2024-11-16 07:20 | disposition home or self-care (01) ==
LOC: HO.HMGCLDS 07:19
PROVIDERS: PCP Internal Medicine; Visit Provider Internal Medicine
DX: R06.09 Other forms of dyspnea (principal); E78.5 Hyperlipidemia, unspecified
CPT/HCPCS: 36415; 80053; 80061; 85025

== ENCOUNTER 2024-11-19 07:26 | Outpatient (AMB) | payer MEDICARE, OTHER, SELFPAY ==
--- OUTSIDE RECORDS SUMMARY | 2024-11-19 07:29 | XMS_ITS | Clinical Summary ---
Author Organization [facility] Facility Address [address] [place] [address] Care Team Providers Care Insurance Defense Attorney Name Role Phone Ann Rapp MD Primary Care Provider [phone] Allergies Active Allergy Reactions Criticality Noted Date [...] disease Father Dementia Mother Heart disease Mother [place] Gout Sibling 1 sister Diabetes Sibling 2 [...] age to complete this topic Insurance Medicare [facility] Medicare Care Teams Insurance Defense Attorney Relationship Specialty Start Date End Date Ann Rapp MD [address] [place] [phone] PCP - General Family Medicine 04/05/21
--- NOTE | 2024-11-19 07:35 | AM.OFFVISMDC ---
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 [place] of care reviewed and updated. The patient is a 69-year-old female presenting for a Medicare annual wellness exam. She received the pneumonia vaccine at 68 years old and the tetanus vaccine in 2020, with the next tetanus vaccine due in 2030. Her recent mammogram was negative, and a bone density scan in April 2024 showed osteopenia with a T score of -2.2 at the femoral neck. Recent laboratory tests indicated good kidney function with a GFR of 52, improved cholesterol levels from 219 to 170, and normal blood sugar and liver enzymes. Her medical history includes a tonsillectomy, left nephrectomy for kidney donation, and hysterectomy. Family history reveals her mother had Alzheimer's, emphysema, and heart disease, while her father had renal cancer and a history of alcohol use disorder. She does not smoke, drinks wine a few times a month, and denies depression. REPLACED BY [facility] Surgical History History of tonsillectomy History of nephrectomy, left History of hysterectomy Family History Mother Alzheimer disease Emphysema lung Heart disease Father Renal cancer Substance use disorder Maternal Grandmother Stroke Family/Other Mental health disorder Social History Housing: House Alcohol intake: current Alcohol intake frequency: a few times a month Alcohol type: wine Patient Tobacco Use Status: Never used Tobacco e-Cigarette/Vaping Use: Never Used Second Hand Smoke Exposure: Yes service: No Current occupational status: employed and retired Cognitive needs: No Hearing needs: No Vision needs: Yes Questionnaire Medicare Wellness Checkup What [age]?: 65-70 What gender do you identify with?: female During the past 4 weeks, how much have you been bothered by emotional problems such as feeling anxious, depressed, irritable, sad or downhearted, and blue?: not at all During the past 4 weeks, has your physical & emotional health limited your social activities with family, friends, neighbors, or groups?: not at all During the past 4 weeks, how much bodily pain have you generally had?: no pain During the past 4 weeks, was someone available to help you if you needed & wanted help?: yes, as much as I wanted During the past 4 weeks, what was the hardest physical activity you could do for at least 2 minutes?: moderate Can you get to places out of walking distance without help? (For eg., can you travel alone on buses, taxis or drive your car?): Yes Can you go shopping for groceries or clothes without someone's help?: Yes Can you prepare your own meals?: Yes Can you do your housework without help?: Yes Because of any health problems, do you need the help of another person with your personal care needs such as eating, bathing, dressing or getting around the house?: No Can you handle your own money without help?: Yes During the past 4 weeks, how would you rate your health in general?: very good During the past 4 weeks how have things been going for you?: pretty well Are you having difficulties driving your car?: no Do you always fasten your seat belt when you are in a car?: yes, usually During past 4 weeks, have you been bothered by the following: never: Sexual problems?, Trouble eating well?, Teeth or denture problems? and Problems using the telephone?, seldom: Tiredness or fatigue? and sometimes: Falling or dizzy when standing up Have you fallen 2 or more times in the past year?: No Are you afraid of falling?: No Are you a smoker?: no During the past 4 weeks, how many drinks of wine, beer, or other alcoholic beverages did you have?: 1 drink or less per week Do you exercise for about 20 minutes 3 or more times a week?: no, I usually do not exercise this much Have you been given information to help with the following?: no: Hazards in your house that might hurt you? and no: Keeping track of your medications? How often do you have trouble taking medicines the way you have been told to take them?: I always take medicine as prescribed How confident are you that you can control & manage most of your health problems?: very confident What is your race?: White Mini Mental State Exam (MMSE) Orientation What is the (year) (season) (date) (day) (month)?: year, season, date, day and month Where are we (state) (county) (town or city) (hospital) (floor)?: state, county, town or city, hospital/clinic and floor Registration Name of 3 unrelated objects clearly and slowly, then ask patient to repeat all 3 of them. (1st repeat determines score. Make sure they can repeat all three): object 1, object 2 and object 3 Attention & Calculation (CHOOSE ONE) Spell WORLD backwards (DLROW): 5 letters Recall Ask patient to repeat the 3 items from question #3.: object 1, object 2 and object 3 Language Show patient a wristwatch & ask what it is. Repeat for pencil.: watch and pencil Ask the patient to repeat the phrase 'No ifs, ands, or buts' after you.: correct Ask the patient to 'take a piece of paper with their right hand' 'fold paper in half' 'place paper on floor': take paper in right hand, fold paper in half and place paper on floor Print the sentence 'CLOSE YOUR EYES' on a piece. If patient actually closes eyes then score.: followed written direction Give patient a blank piece of paper & ask to write a sentence. Score if it contains a noun & verb.: sentence contains subject and verb Ask patient to copy figure of intersecting pentagons exactly. Score if all 10 angles & 2 intersects are included.: all 10 angles present & 2 are intersected Score Score: 30 Activity of Daily Living Bathing - sponge bath, tub bath or shower: receives no assistance (gets in/out by self, if usual bathing means Dressing - getting clothes from closets & drawers, including inner/outer garments & fasteners.: gets clothes & gets completely dressed without help Toileting - going to the 'toilet room' for urine/bowel elimination & cleaning self/arranging clothes: goes to toilet room, cleans self, arranges clothes without help Transfer: moves in & out of bed and chair without help (may use support object) Continence: controls urination/bowel movements completely by self Feeding: feeds self without help Total Score: 0 Information obtained from: patient Using telephone: independent Traveling: independent Shopping: independent Preparing meals: independent Housework: independent Taking medicine: independent Managing money: independent PHQ-9 Over the last 2 weeks, how often have you been bothered by any of the following problems? 1. Little interest or pleasure in doing things: not at all 2. Feeling down, depressed, or hopeless: not at all 3. Trouble falling or staying asleep, or sleeping too much: not at all 4. Feeling tired or having little energy: not at all 5. Poor appetite or overeating: not at all 6. Feeling bad about yourself - or that you are a failure or have let yourself or your family down: not at all 7. Trouble concentrating on things, such as reading the newspaper or watching television: not at all 8. Moving or speaking so slowly that other people could have noticed. Or the opposite - being so fidgety or restless that you have been moving around a lot more than usual: not at all 9. Thoughts that you would be better off or of hurting yourself in some way: not at all Total score: 0 Depression Screening Interpretation: Negative Depression Screening Done: Yes 80662 - PHQ-9 Billing: Yes Source: Developed by Drs. Олег Shukla, Ellen Garcia, Carlos Ching and colleagues, with an educational eboni from [employer]. Fall Risk Assessment Fall Risk Assessment Fall risk assessment: No Falls in past year AUDIT C Alcohol Use Questionnaire (AUDIT-C) 1. How often do you have a drink containing alcohol?: Never Total Score: 0 Score Reviewed/Action Taken: No LUANN-7 AMB Questionnaire LUANN-7 Date LUANN - 7 assessed: 11/19/24 Feeling nervous, anxious, or on edge: 0 = Not at all Not being able to stop or control worryin = Not at all Worrying too much about different things: 0 = Not at all Trouble relaxin = Not at all Being so restless that it is hard to sit still: 0 = Not at all Becoming easily annoyed or irritable: 0 = Not at all Feeling afraid as if something awful might happen: 0 = Not at all Total LUANN-7 score (0-4 normal; 5-9 mild; 10-14 moderate; 15-21 severe): 0 Source: Developed by Drs. Олег Shukla, Ellen Garcia, Carlos Ching and colleagues, with an educational eboni from [employer]. LUANN-7 Assessment Billing LUANN-7 Assessment Tool: LUANN-7 Assessment 34357 Thrive Questionnaire Date Thrive assessed: 06/27/23 Review of Systems Const All systems reviewed & are unremarkable except as noted in HPI and below Card Denies chest pain at rest, Denies chest pain with activity, Denies edema, Denies irregular heart rhythm, Denies claudication, Denies dyspnea, Denies dyspnea on exertion, Denies orthopnea, Denies paroxysmal nocturnal dyspnea and Denies slow heart rate Resp Denies cough, Denies dyspnea and Denies dyspnea on exertion GI Denies abdominal pain, Denies change in bowel habits, Denies excessive flatus, Denies nausea and Denies vomiting Physical Exam Vital Signs: Last Vital Signs BP 126/80 11/19/24 07:37 BMI result Body Mass Index 32.9 Resp Effort & Inspection: normal respiratory effort Auscultation: clear to auscultation bilaterally Cardio Jugular venous distension: no JVD Rate: regular rate Rhythm: regular rhythm Heart sounds: S1 normal heart sound present and S2 normal heart sound present Extrem General: Yes full ROM Assessment & Plan Assessment & Plan (1) Encounter for Medicare annual wellness exam: Code(s): Z00.00 - Encounter for general adult medical examination without abnormal findings Plan The patient will continue with her current medication regimen, including pravastatin for hyperlipidemia, which has shown significant improvement in cholesterol levels. She is advised to add calcium with vitamin D to her regimen to support bone health, given the diagnosis of osteopenia. A follow-up colonoscopy is recommended due to the time elapsed since her last procedure, and arrangements will be made to have it done locally for record continuity. The patient is encouraged to maintain her current lifestyle, including moderate alcohol consumption and regular health screenings, to monitor her overall health status. Patient was informed and verbally consented to the use of an ambient scribe for clinic note documentation during this visit. Orders: Referrals Open Access Screening Colonoscopy Referral Z12.12 - Encounter for screening for malignant neoplasm of rectum Medications: New calcium carbonate (Calcium 600) 600 mg PO BID 180 tabs 3RF 90 days M85.80 - Other specified disorders of bone density and structure, unspecified site Quality Reporting (2019) Fall Risk Screening ([facility] 139) Fall risk assessment: No Falls in past year Depression/Bipolar (159/160/161/177) PHQ-9: Total score: 0 Coding Level of Care Code Medicare First (G0438) Diagnoses Encounter for Medicare annual wellness exam Z00.00 CPT Codes Advance Care Planning - Time spent: 1-15 minutes, on File ([id number]) Additional Codes LUANN-7 Assessment Billing - LUANN-7 Assessment Tool: LUANN-7 Assessment 74072 ([id number]) PHQ-9 - 63656 - PHQ-9 Billing: Yes ([id number]) Time Spent (min) 34 Advance Care Planning Advance Care Planning discussion: Exists, not on file Date of discussion: 11/19/24 Who was present: patient and me Forms completed: Health Care Proxy Time spent: 1-15 minutes, on File Actual minutes spent: 2
[2024-11-19 07:37] VITALS: BP 126/80; BMI 32.9
== END 2024-11-19 08:05 | disposition home or self-care (01) ==
LOC: HO.HMCH 07:27
PROVIDERS: PCP Internal Medicine; Visit Provider Internal Medicine
DX: Z00.00 Encounter for general adult medical examination without abnormal findings (principal)

== ENCOUNTER → 2024-11-19 07:26 | Outpatient (BNVA) | payer MEDICARE, OTHER, SELFPAY | PROVIDERS: PCP Internal Medicine; Visit Provider Internal Medicine | DX: Z00.00 Encounter for general adult medical examination without abnormal findings (principal); M85.80 Other specified disorders of bone density and structure, unspecified site | CPT/HCPCS: 96127 ==

== ENCOUNTER 2024-11-29 07:57 | Outpatient (REF) | payer MEDICARE, OTHER, SELFPAY ==
--- OUTSIDE RECORDS SUMMARY | 2024-11-29 08:01 | XMS_ITS | Clinical Summary ---
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 Name Role Phone Ann Rapp MD Primary Care Provider [phone] Allergies Active Allergy Reactions Criticality Noted Date [...] disease Father Dementia Mother Heart disease Mother [place] Gout Sibling 1 sister Diabetes Sibling 2 [...] Colorectal Cancer Screening: Sigmoidoscopy 12/31/2004 Influenza Vaccine (#1) 2025 Hepatitis B Vaccine Aged Out No longe r eligible based on patient's age to complete this topic Insurance Medicare [facility] Medicare Care Teams Panel Edge Painter Relationship Specialty Start Date End Date Ann Rapp MD [address] [place] [id number] PCP - General Family Medicine 04/05/21
[2024-11-29 11:03] VITALS: PULSE 75; RESP 16; O2SAT 95
--- NOTE | 2024-11-29 14:33 | PFT_ITS ---
Indication: Dyspnea Spirometry FEV1 to FVC 78 %; FEV1 2.42 L; FVC 3.09 L. No significant response to bronchodilators noted. Lung Volumes Total lung capacity 114% predicted; residual volume 126% predicted Diffusion Capacity DLCO 76% predicted Comparisons none Interpretation No obstructive nor restrictive ventilatory defects identified. No significant response to bronchodilators noted. The patient does have evidence of a trend of hyperinflation and significant air trapping. There is also mild diffusion impairment. If asthma is in differential methacholine challenge may be helpful in assessing for hyperreactive airways. Clinical correlation warranted. MTDD
== END 2024-11-29 07:58 | disposition home or self-care (01) ==
LOC: HO.RESP 07:57
PROVIDERS: PCP Internal Medicine; Visit Provider Nurse Practitioner Family
DX: R06.00 Dyspnea, unspecified (principal)
CPT/HCPCS: 94010; 94640; 94727; 94729

== ENCOUNTER → 2024-11-29 14:33 | Outpatient (BNV) | payer MEDICARE, OTHER, SELFPAY | PROVIDERS: PCP Internal Medicine; Visit Provider Hospitalist | DX: R06.00 Dyspnea, unspecified (principal) | CPT/HCPCS: 94060; 94727; 94729 ==

== ENCOUNTER 2024-12-02 15:59 | Outpatient (AMB) | payer MEDICARE, OTHER, SELFPAY ==
[2024-12-02 16:02] VITALS: BP 128/70; PULSE 97; RESP 18; O2SAT 98; BMI 31.9
--- NOTE | 2024-12-02 16:02 | A.OFFVIS_ITS ---
Vital Signs 12/02/24 16:02 Height 5 ft 2 in Weight 174 lb 2.643 oz BMI 31.9 BP 128/70 Blood Pressure Location Rt brachial Position Sitting Respiration 18 Pulse 97 Pulse Source Pulse Oximeter Pulse Oximetry (%) 98 Oxygen Delivery Method Room Air Intake Visit Reasons: Dyspnea/PFT Follow Up Director Private Required: No Allergies No Known Allergies Allergy (Verified 12/02/24 16:04) HPI HPI Dyspnea/PFT Follow Up: Details: Senait is a pleasant 69 year old female, never smoker, with underlying GERD. She was initially referred by PCP for chronic dyspnea which has been present for many years occasionally associated with chest heaviness/tightness. She denies cough, wheezing. At the last visit she was sent for PFT and chest x-ray and presents to review results. She denies any visits to urgent care hospitalizations related to respiratory distress since last visit. [facility] Surgical History History of tonsillectomy History of nephrectomy, left History of hysterectomy Family History Mother Alzheimer disease Emphysema lung Heart disease Father Renal cancer Substance use disorder Maternal Grandmother Stroke Family/Other Mental health disorder Social History Housing: House Alcohol intake: current Alcohol intake frequency: a few times a month Alcohol type: wine Patient Tobacco Use Status: Never used Tobacco e-Cigarette/Vaping Use: Never Used Second Hand Smoke Exposure: Yes service: No Current occupational status: employed and retired Cognitive needs: No Hearing needs: No Vision needs: Yes Review of Systems Const Denies chills, Denies excessive sweating, Denies fever(s), Denies headache(s) and Denies night sweats Eyes Denies dry eyes, Denies irritation and Denies itchy eyes ENT Reports Normal hearing present, Denies headache(s), Denies nasal congestion, Denies nasal discharge, Denies post nasal drip and Denies sore throat Card Denies chest pain, Denies chest pain at rest, Denies chest pain with activity, Denies claudication, Denies leg edema, Denies orthopnea and Denies paroxysmal nocturnal dyspnea Resp Denies chest congestion, Denies cough, Denies excessive phlegm production, Denies pain on inspiration, Denies pain with cough, Denies stridor and Denies wheezing Musc Denies myalgias Neuro Reports Normal hearing present and Denies headache(s) Endo Denies excessive sweating Grant/Lymph Denies lymphadenopathy Aller/Immun Denies itchy eyes, Denies seasonal rhinorrhea and Denies wheezing Physical Exam Vital Signs: Last Vital Signs Pulse 97 12/02/24 16:02 Resp 18 12/02/24 16:02 BP 128/70 12/02/24 16:02 Pulse Ox 98 12/02/24 16:02 Oxygen Delivery Method Room Air 12/02/24 16:02 BMI result Body Mass Index 31.9 Const General: cooperative, healthy appearing, comfortable, no acute distress, well developed and alert Nutritional Appearance: obese Orientation/consciousness: patient oriented x3 Limitations: no limitations HEENT Head: Yes normal to inspection, Yes normocephalic and Yes atraumatic Ears: hearing grossly normal bilaterally and external ears normal Eyes General: appearance normal, both eyes and all related structures Eyelids: Yes eyelids normal Sclerae: sclerae normal EOM: EOMs intact bilaterally Neck Neck: Yes normal visual inspection and Yes no lymphadenopathy Lymphatic: no lymphadenopathy noted Chest Chest palpation & inspection: normal inspection of the chest Resp Effort & Inspection: normal respiratory effort, able to speak in complete sentences, no audible wheezes, no cough, no stridor, not tachypneic, no tripod positioning and no use of accessory muscles Auscultation: clear to auscultation bilaterally Cardio Jugular venous distension: no JVD Rate: regular rate Rhythm: regular rhythm Skin Other: warm, dry General skin exam: no rashes or lesions noted Neuro General: patient oriented x3 Cranial nerves: Yes Normal hearing present Cognition (Neuro): normal cognition Gait exam (Neuro): Normal gait present Extrem General: Yes normal to inspection, Yes capillary refill normal, Yes no clubbing, cyanosis or edema and Yes no pedal edema Psych Appearance: grossly normal and well kempt Speech and movement: Normal speech and movement present and Clear speech present Affect: normal affect Attitude: cooperative Thought process: Normal thought process present Thought content: Normal thought content present Insight: Good insight present (Psych) Judgement: Good judgement present (Psych) Results Reviewed Results Reviewed: [facility] [place] [address] [place] [address] XRay Report Signed Patient: Senait Cee MR#: [id number] : 1955 Acct:[id number] Age/Sex: 69 / F ADM Date: 11/15/24 Loc: HO.HMGCX Attending Dr: Nuha Bee NP Ordering Physician: Nuha Bee NP Date of Service: 11/15/24 Procedure(s): XR chest 2V Accession Number(s): [id number] cc: Janell Alonso MD; Nuha Bee NP~ EXAMINATION: XR CHEST CLINICAL INFORMATION: R06.00 - Dyspnea, unspecified COMPARISON: None available. TECHNIQUE: 2 views of the chest were obtained. FINDINGS: No consolidation, pleural effusion or pneumothorax. No hyperinflation. Cardiomediastinal silhouette size is normal. Multilevel thoracolumbar spondylosis with a kyphotic deformity of the thoracolumbar junction. Osteopenia versus osteoporosis. Patient's large body habitus/obesity. XR/XR chest 2V IMPRESSION: No acute airspace disease. Multilevel spondylosis. 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 No significant response to bronchodilators noted. The patient does have evidence of a trend of hyperinflation and significant air trapping. There is also mild diffusion impairment. We discussed possible methacholine challenge to assess for hyperreactive airways, however will defer at this time and empirically trial Advair as symptoms and PFT suggestive of asthma. Chest x-ray unremarkable. All questions were answered and patient is in agreement of plan. Will follow up in 6-8 weeks or sooner if needed. Medications: New fluticasone propion-salmeterol 115-21 mcg/actuation (Advair HFA) 2 puffs inhalation Q12H 12 grams 0RF Coding Level of Care Code Est Pt Level 4 (04582) Diagnoses Asthma J45.909
--- OUTSIDE RECORDS SUMMARY | 2024-12-02 16:56 | XMS_ITS | Clinical Summary ---
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
== END 2024-12-02 16:21 | disposition home or self-care (01) ==
LOC: HO.HPS 15:59
PROVIDERS: PCP Internal Medicine; Visit Provider Nurse Practitioner Family
DX: J45.909 Unspecified asthma, uncomplicated (principal)
CPT/HCPCS: 99214

== ENCOUNTER → 2024-12-02 15:59 | Outpatient (BNVA) | payer MEDICARE, OTHER, SELFPAY | PROVIDERS: PCP Internal Medicine; Visit Provider Nurse Practitioner Family | DX: R06.09 Other forms of dyspnea (principal); J45.909 Unspecified asthma, uncomplicated; Z79.899 Other long term (current) drug therapy | CPT/HCPCS: 99212 ==

== ENCOUNTER 2025-01-13 12:58 | Outpatient (AMB) | payer MEDICARE, OTHER, SELFPAY ==
--- NOTE | 2025-01-13 13:06 | A.OFFVIS_ITS ---
Vital Signs 01/13/25 13:14 Height 5 ft 2 in Weight 176 lb 5.917 oz BMI 32.3 BP 132/80 Blood Pressure Location Rt brachial Position Sitting Pulse 82 Pulse Source Pulse Oximeter Pulse Oximetry (%) 95 Oxygen Delivery Method Room Air Intake Visit Reasons: Dyspnea Allergies No Known Allergies Allergy (Verified 01/13/25 13:16) HPI HPI Dyspnea: Details: Senait is a pleasant 70 year old female, never smoker, with underlying asthma and GERD. At the last visit, she was started ICS/LABA and reports notable improvements in respiratory symptoms, no longer reporting dyspnea with moderate exertion. She does report loss of taste since initiating and interested in trialing an alternative. She denies any visits to urgent care hospitalizations related to respiratory distress since last visit. [facility] Surgical History History of tonsillectomy History of nephrectomy, left History of hysterectomy Family History Mother Alzheimer disease Emphysema lung Heart disease Father Renal cancer Substance use disorder Maternal Grandmother Stroke Family/Other Mental health disorder Social History Housing: House Alcohol intake: current Alcohol intake frequency: a few times a month Alcohol type: wine Patient Tobacco Use Status: Never used Tobacco e-Cigarette/Vaping Use: Never Used Second Hand Smoke Exposure: Yes service: No Current occupational status: employed and retired Cognitive needs: No Hearing needs: No Vision needs: Yes Review of Systems Const Denies chills, Denies excessive sweating, Denies fever(s), Denies headache(s) and Denies night sweats Eyes Denies dry eyes, Denies irritation and Denies itchy eyes ENT Reports Normal hearing present, Denies headache(s), Denies nasal congestion, Denies nasal discharge, Denies post nasal drip and Denies sore throat Card Denies chest pain, Denies chest pain at rest, Denies chest pain with activity, Denies claudication, Denies leg edema, Denies dyspnea, Denies dyspnea on exertion, Denies orthopnea and Denies paroxysmal nocturnal dyspnea Resp Denies chest congestion, Denies cough, Denies excessive phlegm production, Denies pain on inspiration, Denies pain with cough, Denies dyspnea, Denies dyspnea on exertion, Denies stridor and Denies wheezing Musc Denies myalgias Neuro Reports Normal hearing present and Denies headache(s) Endo Denies excessive sweating Grant/Lymph Denies lymphadenopathy Aller/Immun Denies itchy eyes, Denies seasonal rhinorrhea and Denies wheezing Physical Exam Vital Signs: Last Vital Signs Pulse 82 01/13/25 13:14 BP 132/80 01/13/25 13:14 Pulse Ox 95 01/13/25 13:14 Oxygen Delivery Method Room Air 01/13/25 13:14 BMI result Body Mass Index 32.3 Const General: cooperative, healthy appearing, comfortable, no acute distress, well developed and alert Nutritional Appearance: obese Orientation/consciousness: patient oriented x3 Limitations: no limitations HEENT Head: Yes normal to inspection, Yes normocephalic and Yes atraumatic Ears: hearing grossly normal bilaterally and external ears normal Eyes General: appearance normal, both eyes and all related structures Eyelids: Yes eyelids normal Sclerae: sclerae normal EOM: EOMs intact bilaterally Neck Neck: Yes normal visual inspection and Yes no lymphadenopathy Lymphatic: no lymphadenopathy noted Chest Chest palpation & inspection: normal inspection of the chest Resp Effort & Inspection: normal respiratory effort, able to speak in complete sentences, no audible wheezes, no cough, no stridor, not tachypneic, no tripod positioning and no use of accessory muscles Auscultation: clear to auscultation bilaterally Cardio Jugular venous distension: no JVD Rate: regular rate Rhythm: regular rhythm Skin Other: warm, dry General skin exam: no rashes or lesions noted Neuro General: patient oriented x3 Cranial nerves: Yes Normal hearing present Cognition (Neuro): normal cognition Gait exam (Neuro): Normal gait present Extrem General: Yes normal to inspection, Yes capillary refill normal, Yes no clubbing, cyanosis or edema and Yes no pedal edema Psych Appearance: grossly normal and well kempt Speech and movement: Normal speech and movement present and Clear speech present Affect: normal affect Attitude: cooperative Thought process: Normal thought process present Thought content: Normal thought content present Insight: Good insight present (Psych) Judgement: Good judgement present (Psych) Assessment & Plan Assessment & Plan (1) Asthma: Code(s): J45.909 - Unspecified asthma, uncomplicated Category: Medical Plan Senait reports good control of respiratory symptoms on ICS/LABA, will switch to Wixela as she notes loss of taste with Symbicort. Will also prescribe albuterol MDI PRN. All questions were answered and patient is in agreement of plan. Will follow up in 3-6 months or sooner if needed. Medications: New fluticasone propion-salmeterol 100-50 mcg/dose (Wixela Inhub) 1 inh inhalation BID 60 ea 0RF albuterol sulfate 90 mcg/actuation 2 puffs inhalation Q4-6H PRN 3 ea 0RF shortness of breath or wheezing Coding Level of Care Code Est Pt Level 3 (26753) Diagnoses Asthma J45.909
[2025-01-13 13:14] VITALS: BP 132/80; PULSE 82; O2SAT 95; BMI 32.3
--- OUTSIDE RECORDS SUMMARY | 2025-01-13 14:11 | XMS_ITS | Clinical Summary ---
Author Organization [facility] Facility Address [address] [place] [id number] Care Team Providers Care Professor Of Theatre Name Role Phone Ann Rapp MD Primary Care Provider [phone] Allergies Active Allergy Reactions Criticality Noted Date [...] disease Father Dementia Mother Heart disease Mother PR Gout Sibling 1 sister Diabetes Sibling 2 [...] age to complete this topic Insurance Medicare [facility] Medicare Care Teams Professor Of Theatre Relationship Specialty Start Date End Date Ann Rapp MD [address] [place] [id number] PCP - General Family Medicine 04/05/21
== END 2025-01-13 13:30 | disposition home or self-care (01) ==
LOC: HO.HPS 12:59
PROVIDERS: PCP Internal Medicine; Visit Provider Nurse Practitioner Family
DX: J45.909 Unspecified asthma, uncomplicated (principal)
CPT/HCPCS: 99213

== ENCOUNTER → 2025-01-13 12:58 | Outpatient (BNVA) | payer MEDICARE, OTHER, SELFPAY | PROVIDERS: PCP Internal Medicine; Visit Provider Nurse Practitioner Family | DX: J45.909 Unspecified asthma, uncomplicated (principal) | CPT/HCPCS: 99212 ==

== ENCOUNTER 2025-01-21 09:47 | Outpatient (REF) | payer MEDICARE, OTHER, SELFPAY ==
--- OUTSIDE RECORDS SUMMARY | 2025-01-21 10:57 | XMS_ITS | Clinical Summary ---
Author Organization [facility] Facility Address [address] [place] [address] Care Team Providers Care Hardboard Factory Worker Name Role Phone Ann Rapp MD Primary Care Provider [phone] Allergies Active Allergy Reactions Criticality Noted Date [...] disease Father Dementia Mother Heart disease Mother [place] Gout Sibling 1 sister Diabetes Sibling 2 [...] topic Insurance Medicare [facility] Medicare Care Teams Hardboard Factory Worker Relationship Specialty Start Date End Date Ann Rapp MD [address] [place] [id number] PCP - General Family Medicine 04/05/21
[2025-01-21 12:59] LABS: Appearance Urine Clear; Glucose Urine UA Negative (Negative); PH 6.5 (5.0-9.0); Specific Gravity - Urine 1.015 (1.005-1.025); UMIC TRIGGER UA YES
[2025-01-21 13:48] LABS: Anion Gap 13 (12-20); Blood Urea Nitrogen 21 mg/dL (9-16); Carbon Dioxide 27 mmol/L (22-29); Chloride 107 mmol/L (96-108); Estimated Glomerular Filt Rate 45; Potassium 4.2 mmol/L (3.3-5.1); Sodium 143 mmol/L (135-145)
[2025-01-21 13:53] LABS: Parathyroid Hormone Intact 79.7 pg/mL (8.7-77.1)
[2025-01-21 14:01] LABS: Total Protein Urine Random < 7 mg/dL (<12)
== END 2025-01-21 09:48 | disposition home or self-care (01) ==
LOC: HO.HMGCLDS 09:47
PROVIDERS: PCP Internal Medicine; Visit Provider Internal Medicine Nephrology
DX: Z90.5 Acquired absence of kidney (principal); Z52.4 Kidney donor
CPT/HCPCS: 36415; 80051; 81001; 82306; 82565; 82570; 83970; 84100; 84156; 84520

== ENCOUNTER 2025-01-24 14:53 | Outpatient (AMB) | payer MEDICARE, OTHER, SELFPAY ==
--- OUTSIDE RECORDS SUMMARY | 2025-01-24 14:57 | XMS_ITS | Clinical Summary ---
Author Organization [facility] Facility Address [address] [place] [address] Care Team Providers Care Scrap Drop Operator Name Role Phone Ann Rapp MD Primary Care Provider [phone] Allergies Active Allergy Reactions Criticality Noted Date [...] age to complete this topic Insurance Medicare [facility] Medicare Care Teams Scrap Drop Operator Relationship Specialty Start Date End Date Ann Rapp MD [address] [place] [id number] PCP - General Family Medicine 04/05/21
--- NOTE | 2025-01-24 14:59 | HO.NEPHOV ---
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 She had donated her kidney to her sister. She does not have any hypertension, proteinuria. Her renal functions have been stable with the last serum creatinine 1.19. She has no froth or foam in the urine. She is trying to lose some weight. She denies taking excessive nonsteroidal anti-inflammatories. She maintains good hydration. She denies any UTIs, hematuria, renal stones, flank pain, chest pain, shortness of breath, paroxysmal nocturnal dyspnea, orthopnea, pedal edema or orthostatic symptoms. She denies new complaints at the time of this office visit. [facility]LY [facility] Surgical History History of tonsillectomy History of nephrectomy, left History of hysterectomy Family History Mother Alzheimer disease Emphysema lung Heart disease Father Renal cancer Substance use disorder Maternal Grandmother Stroke Family/Other Mental health disorder Social History Housing: House Alcohol intake: current Alcohol intake frequency: a few times a month Alcohol type: wine Patient Tobacco Use Status: Never used Tobacco e-Cigarette/Vaping Use: Never Used Second Hand Smoke Exposure: Yes service: No Current occupational status: employed and retired Cognitive needs: No Hearing needs: No Vision needs: Yes Review of Systems Const All systems reviewed & are unremarkable except as noted in HPI and below Physical Exam Vital Signs: Last Vital Signs Pulse 82 01/24/25 15:02 BP 134/80 01/24/25 15:02 Pulse Ox 98 01/24/25 15:02 Oxygen Delivery Method Room Air 01/24/25 15:02 BMI result Body Mass Index 32.3 Const General: comfortable and no acute distress Orientation/consciousness: patient oriented x3 Neck Neck: Yes supple Resp Auscultation: clear to auscultation bilaterally Cardio Jugular venous distension: no JVD Rate: regular rate GI Palpation (GI): Soft to palpation Auscultation: normal bowel sounds General: Yes no CVA tenderness Back/Spine/Pelvis Back: no CVA tenderness Skin General skin exam: no rashes or lesions noted Neuro General: patient oriented x3 and moves all extremities Extrem General: Yes no pedal edema Results Reviewed Nephrology Results: Hgb, (12.0-16.0) 13.2 g/dl 11/16/24 WBC, (4.8-10.8) 5.8 X10*3/uL 11/16/24 Plt Count, (160-400) 264 X10*3/uL 11/16/24 Sodium, (135-145) 143 mmol/L 01/21/25 Potassium, (3.3-5.1) 4.2 mmol/L 01/21/25 Chloride, (96-108) 107 mmol/L 01/21/25 Carbon Dioxide, (22-29) 27 mmol/L 01/21/25 BUN, (9-16) 21 mg/dL H 01/21/25 Creatinine, (0.5-1.4) 1.19 mg/dL 01/21/25 Calcium, (8.4-10.2) 9.4 mg/dL 11/16/24 Phosphorus, (2.7-4.5) 3.0 mg/dL 01/21/25 PTH Intact, (8.7-77.1) 79.7 pg/mL H 01/21/25 Urine Protein, (Neg-Trace) Negative mg/dL 01/21/25 Urine Creatinine 84.79 mg/dL 01/21/25 Protein/Creatinin Ratio TNP 01/21/25 Assessment & Plan Assessment & Plan (1) Absent kidney, acquired: Code(s): Z90.5 - Acquired absence of kidney Category: Medical Plan Senait has given one of her kidneys to her sister. Her renal functions have been stable. Her blood pressure has been at goal. She needs to lose weight. She is not known to have any proteinuria. She is at risk for hyper filtration. With time she may be a candidate for low-dose DUNCAN inhibitor, if indicated. She needs to continue lifestyle modifications. I did not make any medication changes today. She should avoid nonsteroidal anti-inflammatories and maintain good hydration. I answered all her questions. Follow-up appointment given. Orders: Orders Urine Culture Today M54.9 - Dorsalgia, unspecified, R82.71 - Bacteriuria Blood Urea Nitrogen 1 Year Z52.4 - Kidney donor, Z90.5 - Acquired absence of kidney Creatinine 1 Year Z52.4 - Kidney donor, Z90.5 - Acquired absence of kidney Electrolytes 1 Year Z52.4 - Kidney donor, Z90.5 - Acquired absence of kidney Protein Creatinine Ratio, Ur 1 Year Z52.4 - Kidney donor, Z90.5 - Acquired absence of kidney Coding Level of Care Code Est Pt Level 4 (99487) Diagnoses Absent kidney, acquired Z90.5
[2025-01-24 15:02] VITALS: BP 134/80; PULSE 82; O2SAT 98; BMI 32.3
== END 2025-01-24 15:15 | disposition home or self-care (01) ==
LOC: HO.HKA 14:54
PROVIDERS: PCP Internal Medicine; Visit Provider Internal Medicine Nephrology
DX: Z90.5 Acquired absence of kidney (principal)
CPT/HCPCS: 99214

== ENCOUNTER → 2025-01-24 14:53 | Outpatient (BNVA) | payer MEDICARE, OTHER, SELFPAY | PROVIDERS: PCP Internal Medicine; Visit Provider Internal Medicine Nephrology | DX: E66.9 Obesity, unspecified (principal); Z68.32 Body mass index [BMI] 32.0-32.9, adult; Z90.5 Acquired absence of kidney | CPT/HCPCS: 99212 ==

== ENCOUNTER 2025-02-07 13:13 | Outpatient (REF) | payer MEDICARE, OTHER, SELFPAY ==
--- OUTSIDE RECORDS SUMMARY | 2025-02-07 13:16 | XMS_ITS | Clinical Summary ---
Author Organization [facility] Facility Address [address] [place] [address] Care Team Providers Care Test Facility Engineer Name Role Phone Ann Rapp MD Primary Care Provider [phone] Allergies Active Allergy Reactions Criticality Noted Date [...] disease Father Dementia Mother Heart disease Mother [place] Gout Sibling 1 sister Diabetes Sibling 2 [...] to complete this topic Insurance Medicare [facility] Medicare Care Teams Test Facility Engineer Relationship Specialty Start Date End Date Ann Rapp MD [address] [place] [id number] PCP - General Family Medicine 04/05/21
[2025-02-07 16:23] LABS: Appearance Urine Clear; Glucose Urine UA Negative (Negative); PH 6.0 (5.0-9.0); Specific Gravity - Urine <= 1.005 (1.005-1.025); UMIC TRIGGER UA YES
== END 2025-02-07 13:14 | disposition home or self-care (01) ==
LOC: HO.HMGCLDS 13:13
PROVIDERS: Internal Medicine Nephrology; PCP Internal Medicine; Visit Provider Nurse Practitioner Family
DX: R82.71 Bacteriuria (principal); M54.9 Dorsalgia, unspecified
CPT/HCPCS: 81001; 87086